=== PATIENT | male | born 1980 | race Caucasian/White ===

== ENCOUNTER 2021-10-22 16:47 | Outpatient (REF) | payer MEDICAID, SELFPAY ==
[2021-10-22 18:58] LABS: HCT 48.7 % (40.0-50.0); MCH 26.1 pg (27.0-33.0); MCHC 30.8 % (32.0-36.0); MCV 84.7 fL (80-95); MPV 11.4 fL (8.0-11.0); Platelet Count 216 10^3/uL (130-400); RBC 5.75 10^6/uL (4.36-5.78); RDW 14.2 % (11.8-14.1); RDW-SD 43.8 fL; WBC 6.29 10^3/uL (4.4-10.8)
[2021-10-22 20:17] LABS: ALT 26 U/L (16-63); AST 23 U/L (15-37); Albumin 4.2 g/dL (3.4-5.0); Alkaline Phosphatase 105 U/L (46-116); Anion Gap 9.7 mmol/L (3-11); BUN 13 mg/dL (7-18); Bilirubin, Total 0.4 mg/dL (0.2-1.0); CO2 27.3 mmol/L (21.0-32.0); CREATININE 0.8 mg/dL (0.70-1.30); Calcium 8.8 mg/dL (8.5-10.1); Chloride 104 mmol/L (98-107); Glucose 94 mg/dL (74-106); Potassium 4.3 mmol/L (3.5-5.1); Sodium 141 mmol/L (136-145); Total Protein 7.3 g/dL (6.4-8.2)
== END 2021-10-22 16:48 | disposition home or self-care (01) ==
LOC: NCHCN 16:47
PROVIDERS: Visit Provider Internal Medicine
DX: R73.03 Prediabetes (principal); J96.92 Respiratory failure, unspecified with hypercapnia; R09.02 Hypoxemia
CPT/HCPCS: 80053; 85027

== ENCOUNTER 2022-01-27 16:35 | Outpatient (REF) | payer MEDICAID, SELFPAY ==
[2022-01-27 21:16] LABS: HCT 49.9 % (40.0-50.0); HGB 15.3 g/dL (13.5-17.5); MCH 25.7 pg (27.0-33.0); MCHC 30.7 % (32.0-36.0); MCV 84 fL (80-95); Platelet Count 245 10^3/uL (130-400); RBC 5.95 10^6/uL (4.36-5.78); RDW 14.4 % (11.8-14.1); RDW-SD 43.3 fL; WBC 7.39 10^3/uL (4.4-10.8)
== END 2022-01-27 16:36 | disposition home or self-care (01) ==
LOC: NCHCN 16:35
PROVIDERS: Visit Provider Internal Medicine
DX: D75.1 Secondary polycythemia (principal); R60.0 Localized edema
CPT/HCPCS: 85027

== ENCOUNTER 2022-05-27 15:12 | Outpatient (REF) | payer MEDICAID, SELFPAY ==
[2022-05-27 18:49] LABS: HCT 50.1 % (40.0-50.0); HGB 16.1 g/dL (13.5-17.5); MCH 26.5 pg (27.0-33.0); MCHC 32.1 % (32.0-36.0); MCV 83 fL (80-95); MPV 10.9 fL (8.0-11.0); Platelet Count 215 10^3/uL (130-400); RBC 6.07 10^6/uL (4.36-5.78); RDW 14.1 % (11.8-14.1); RDW-SD 42.2 fL; WBC 6.68 10^3/uL (4.4-10.8)
[2022-05-29 13:59] LABS: Erythropoietin 8.2 mIU/mL (2.6 - 18.5)
== END 2022-05-27 15:13 | disposition home or self-care (01) ==
LOC: NCHCN 15:12
PROVIDERS: PCP Internal Medicine; Visit Provider Internal Medicine
DX: D75.1 Secondary polycythemia (principal); I48.0 Paroxysmal atrial fibrillation; J96.92 Respiratory failure, unspecified with hypercapnia
CPT/HCPCS: 82668; 85027

== ENCOUNTER 2022-09-28 02:49 | Outpatient (CLI) | payer MEDICAID, SELFPAY ==
[2022-09-28] MEDS: Albuterol HFA 18 GM 200 PUFF INH IH (14:56)
[2022-09-28] MEDS: Inhaler, Assist Device 1 EACH MC (14:56)
--- NOTE | 2022-10-01 14:32 | W.PFT ---
Date of service: 09/28/22 Time of Service: 12:56 Pulmonary Function Test Result Requesting Provider Duchene Indications: Restrictive lung disease Interpretation Spirometry: There is no airflow limitation. There is restrictive appearing spirometry. No bronchodilator response. The MIP and MEP are decreased. Lung Volumes: There is moderate restriction. Diffusion Capacity: Normal diffusion. Airway Pressure: Normal airways resistance. Impression Moderate restrictive lung disease with a normal diffusion and decrease muscle pressures. This could be consistent with restriction from respiratory muscle weakness. Clinical Correlation therefore is recommended.
== END 2022-09-28 02:50 | disposition home or self-care (01) ==
LOC: RT 02:49
PROVIDERS: PCP Internal Medicine; Visit Provider Student in an Organized Health Care Education/Training Program
DX: R94.2 Abnormal results of pulmonary function studies (principal); J84.9 Interstitial pulmonary disease, unspecified; R06.2 Wheezing; R06.09 Other forms of dyspnea
CPT/HCPCS: 94060; 94726; 94729

== ENCOUNTER 2023-02-24 14:14 | Outpatient (REF) | payer MEDICAID, SELFPAY ==
[2023-02-24 19:54] LABS: HCT 50.2 % (40.0-50.0); MCH 26.2 pg (27.0-33.0); MCHC 31.9 % (32.0-36.0); MCV 82 fL (80-95); MPV 10.9 fL (8.0-11.0); Platelet Count 209 10^3/uL (130-400); RBC 6.11 10^6/uL (4.36-5.78); RDW 14.4 % (11.8-14.1); RDW-SD 43.3 fL; WBC 5.17 10^3/uL (4.4-10.8)
[2023-02-24 20:10] LABS: ALT 22 U/L (16-63); AST 30 U/L (15-37); Albumin 4.2 g/dL (3.4-5.0); Alkaline Phosphatase 102 U/L (46-116); Anion Gap 9.8 mmol/L (3-11); BUN 9 mg/dL (7-18); Bilirubin, Total 0.7 mg/dL (0.2-1.0); CO2 29.2 mmol/L (21.0-32.0); CREATININE 1.1 mg/dL (0.70-1.30); Calcium 9.2 mg/dL (8.5-10.1); Calculated LDL 111 mg/dL (<100); Chloride 101 mmol/L (98-107); Cholesterol 186 mg/dL (<200); Estimated GFR 85.42 (mL/min/1.73m2); Glucose 101 mg/dL (74-106); HDL Cholesterol 54 mg/dL (40-60); Potassium 4.7 mmol/L (3.5-5.1); Sodium 140 mmol/L (136-145); Total Protein 8.1 g/dL (6.4-8.2); Triglyceride 106 mg/dL (<150)
[2023-02-24 20:44] LABS: Hemoglobin A1C 5.9 % (<5.7)
== END 2023-02-24 14:15 | disposition home or self-care (01) ==
LOC: NCHCN 14:14
PROVIDERS: PCP Internal Medicine; Visit Provider Internal Medicine
DX: D75.1 Secondary polycythemia (principal); E66.01 Morbid (severe) obesity due to excess calories; R60.0 Localized edema; R73.03 Prediabetes
CPT/HCPCS: 80053; 80061; 85027; 83036

== ENCOUNTER → 2023-12-19 13:10 | Outpatient (BNVA) | payer MEDICARE, MEDICAID, OTHER, SELFPAY | PROVIDERS: PCP Internal Medicine; Referring Provider Internal Medicine; Visit Provider Physician Assistant Surgical | DX: R53.81 Other malaise (principal); J98.6 Disorders of diaphragm; J98.4 Other disorders of lung; I27.20 Pulmonary hypertension, unspecified; J96.11 Chronic respiratory failure with hypoxia | CPT/HCPCS: 99215 ==

== ENCOUNTER 2024-01-13 14:00 | Outpatient (RCR) | payer MEDICARE, OTHER, MEDICAID, SELFPAY | END 2024-01-13 23:59 | disposition home or self-care (01) | LOC: PRC 14:00 | PROVIDERS: PCP Internal Medicine; Visit Provider Student in an Organized Health Care Education/Training Program | DX: J84.9 Interstitial pulmonary disease, unspecified (principal) | CPT/HCPCS: 94626 ==

== ENCOUNTER 2024-02-08 14:36 | Outpatient (RCR) | payer MEDICARE, OTHER, MEDICAID, SELFPAY ==
--- NOTE | 2024-02-13 16:04 | W.NUTRFU ---
Date of service: 02/13/24 Time of Service: 14:00 Nutrition Note NOTE: Assessment: Michael comes in after referral from [facility]. Would like to work on diet to support CV health and weight loss. He also has prediabetes as part of his PMH. Has been involved with cardiac rehab and reports good progress with staff up there. 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 He feels he has demonstrated willpower in the past, relating he went about 2 years without eating ice cream in the past. Currently Michael reports no set eating pattern. He does usually eat in the morning (4xtoast and 4xeggs given as example) but after that can be inconsistent. Does like pastas and breads - feels portion sizes are a problem here. Usual diet assessed as low in fiber and excessive in CHO intake in the form of starches (mostly refined). Lower food budget can be a barrier and he is looking for some more affordable choices.Mo Currently takes no supplements. No food allergies reported. on 12/19/23 anthropometrics were 133.356kg and 67 with a BMI of 45.9 Estimated energy needs: 2836kcals. Recommend ~2400kcals for steady weight loss. 240g CHO recommended with goal of 35g fiber consistently and <30g added sugar per day. recommended 120g protein for min protein goal (max of ~180g/day). Nutrition Dx: Inadequate fiber intake (NI-5.8.5) related to more refined grain choices and lower consistent intake of veggies and other high fiber choices, as evidenced by pt interview. Excessive CHO intake (NI-5.8.2) related to meals containing 4 or more servings of CHO, as evidenced pt diet recall/interview. Intervention: Reviewed the above recs with Michael and broke down carbs for him and reviewed some nutrition materials regarding carb and non-carb foods, serving sizes to count towards 15grams. Suggested no more than 3 carb servings at meals and 1 at snacks - reviewed importance of setting up a meal plan with goal to eat consistent meals and 1-2 planned snacks per day, targeting lower carb foods, healthy fats, and trying to get more plant protein and less animal protein. Also reviewed list of foods to aim for very regularly that are known to help with CV health: colorful veggies, beans/lentils, nuts/seeds, garlic, oats, whole soy, green tea/hibiscus tea. Michael requested some sample menus put together - I agreed to help with a day sample menu and mail out to him (no computer at home). Evaluation/Monitoring: We scheduled a follow up visit for march to check in on his progress and troubleshoot any barriers he is having. Time Spent in Nutritional Counseling and Treatment: 60 min
== END 2024-02-12 23:59 | disposition home or self-care (01) ==
LOC: PRC 14:36
PROVIDERS: PCP Internal Medicine; Visit Provider Student in an Organized Health Care Education/Training Program
DX: J84.9 Interstitial pulmonary disease, unspecified (principal)
CPT/HCPCS: 00123; 94626

== ENCOUNTER 2024-03-09 14:00 | Outpatient (RCR) | payer MEDICARE, OTHER, MEDICAID, SELFPAY ==
--- NOTE | 2024-03-07 09:41 | W.PFT ---
Date of service: 03/05/24 Time of Service: 14:30 Pulmonary Function Test Result Requesting Provider Debbie Montalvo Indications: Post pulmonary rehab. Interpretation Spirometry: Normal FEV1/FVC but moderate decrease in FEV1 and FVC. Impression Normal spirometry with no obstruction but decreased FEV1 and FVC suggesting restriction. Flow-volume curve suggests restriction. Clinical Correlation therefore is recommended.
== END 2024-03-14 23:59 | disposition home or self-care (01) ==
LOC: PRC 14:00
PROVIDERS: PCP Internal Medicine; Visit Provider Internal Medicine Critical Care Medicine
DX: J84.9 Interstitial pulmonary disease, unspecified (principal)
CPT/HCPCS: 00123; 94626

== ENCOUNTER → 2024-03-27 10:47 | Outpatient (BNVA) | payer MEDICARE, OTHER, MEDICAID, SELFPAY | PROVIDERS: PCP Internal Medicine; Referring Provider Internal Medicine; Visit Provider Physician Assistant Surgical | DX: J96.11 Chronic respiratory failure with hypoxia (principal); J98.4 Other disorders of lung; I27.20 Pulmonary hypertension, unspecified; E66.9 Obesity, unspecified; R53.81 Other malaise | CPT/HCPCS: 99214 ==

== ENCOUNTER 2024-04-02 02:49 | Outpatient (CLI) | payer MEDICARE, OTHER, MEDICAID, SELFPAY | END 2024-04-02 03:09 | LOC: DI 02:50 | PROVIDERS: PCP Internal Medicine; Visit Provider Physician Assistant Surgical | DX: I27.20 Pulmonary hypertension, unspecified (principal) | CPT/HCPCS: 93306 ==

== ENCOUNTER 2024-04-02 04:32 | Outpatient (CLI) | payer MEDICARE, OTHER, MEDICAID, SELFPAY ==
[2024-04-02] MEDS: Levalbuterol HFA 15 GM INH 4 PUFF IH (17:43)
[2024-04-02] MEDS: Inhaler, Assist Device 1 EACH MC (17:43)
--- NOTE | 2024-04-04 10:15 | W.PFT ---
Date of service: 04/02/24 Time of Service: 15:00 Pulmonary Function Test Result Requesting Provider Leonor Maloney Indications: Diaphragmatic dysfunction Impression Spirometry shows normal FEV1/FVC of 79%. Moderate decrease in FEV1 of 56% as well as FVC 56%. No significant reversibility postbronchodilator. Moderate decrease in lung volumes with mild air trapping. Normal diffusion. Flow volume curves suggest restriction. Impression Moderate restrictive ventilatory defect with normal diffusion. Clinical Correlation therefore is recommended.
--- NOTE | 2024-04-04 13:17 | W.6MWT ---
Date of service: 04/02/24 Time of Service: 17:00 6 Minute Walk Test Note: 6-minute walking test Baseline O2 saturations of 95% on room air. Patient walked 335 m and demonstrated no desaturations requiring supplemental O2.
== END 2024-04-02 04:33 | disposition home or self-care (01) ==
LOC: RT 04:32
PROVIDERS: PCP Internal Medicine; Visit Provider Physician Assistant Surgical
DX: J96.11 Chronic respiratory failure with hypoxia (principal); J98.6 Disorders of diaphragm
CPT/HCPCS: 00123; 94060; 94618; 94726; 94729; 93306

== ENCOUNTER 2024-09-21 16:33 | Outpatient (REF) | payer MEDICARE, OTHER, SELFPAY ==
[2024-09-21 19:24] LABS: ALT 25 U/L (16-63); AST 33 U/L (15-37); Albumin 4.3 g/dL (3.4-5.0); Alkaline Phosphatase 98 U/L (46-116); BUN 13 mg/dL (7-18); Bilirubin, Total 0.41 mg/dL (0.2-1.0); CREATININE 1.1 mg/dL (0.70-1.30); Calcium 9.6 mg/dL (8.5-10.1); Calculated LDL 134 mg/dL (<100); Chloride 103 mmol/L (98-107); Cholesterol 217 mg/dL (<200); Estimated GFR 84.37 (mL/min/1.73m2); Glucose 100 mg/dL (74-106); HDL Cholesterol 65 mg/dL (40-60); Potassium 4.4 mmol/L (3.5-5.1); Sodium 139 mmol/L (136-145); Total Protein 8.2 g/dL (6.4-8.2); Triglyceride 90 mg/dL (<150)
== END 2024-09-21 16:34 | disposition home or self-care (01) ==
LOC: NCHCN 16:33
PROVIDERS: PCP Internal Medicine; Visit Provider Internal Medicine
DX: E66.01 Morbid (severe) obesity due to excess calories (principal); R73.03 Prediabetes
CPT/HCPCS: 80053; 80061

== ENCOUNTER 2024-09-25 02:28 | Outpatient (CLI) | payer MEDICARE, OTHER, SELFPAY ==
--- NOTE | 2024-09-25 | DI.US_ITS ---
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 COMPARISON: No exams were available for comparison FINDINGS: Both testicles exhibit normal size and homogeneous echotexture with no intratesticular masses. There is vascular flow including arterial waveforms demonstrated within both testicles. Epididymal are un remarkable bilaterally. There are no significant hydroceles nor varicoceles. However, both testicles are displaced laterally by similar abundant soft tissue density throughout th e scrotal sac, possibly fat. Does not appear to be obvious hernia. IMPRESSION: 1. No evidence of testicular mass nor testicular torsion. 2. However, both testicles are displaced by abundant similar appearing soft tissue throughout the scr otum which is the cause of the very significantly enlarged scrotum in this patient. There is a possi pedro that this is fat tissue extending caudally from the abdomen versus possible intrinsic scrotal pat hology. Recommend CT scan and urology consultation. 3. No can't hydroceles nor varicoceles evident Patient claims that this has been present for between 5-10 years but more painful recently. DATA REPOSITORY:
== END 2024-09-25 02:48 ==
LOC: DI 02:28
PROVIDERS: PCP Internal Medicine; Visit Provider Internal Medicine
DX: N43.3 Hydrocele, unspecified (principal)
CPT/HCPCS: 76870

== ENCOUNTER 2024-10-05 00:21 | Outpatient (CLI) | payer MEDICARE, OTHER, SELFPAY ==
[2024-10-05] MEDS: Barium Sulfate 2% W/V-Berry Smoothie 450 ML BTL PO (07:51)
[2024-10-05] MEDS: Barium Sulfate 2% W/V-Creamy Vanilla Smoothie 450 ML BTL PO (07:54)
--- NOTE | 2024-10-05 10:17 | DI.CT_ITS ---
Exam(s) CT PELVIC W EXAM: CT PELVIC W CLINICAL HISTORY: SCROTAL HERNIA K40.90 FU US 09/25/24 TECHNIQUE: Imaging Protocol: Axial computed tomography images with coronal and sagittal reformatted images were created and reviewed CONTRAST MATERIAL: Intravenous: Omnipaque 350 Contrast volume:100 mL Oral: Yes COMPARISON: US US SCROTUM from 09/25/2024 FINDINGS: PELVIS: Abdominal Aorta: Abdominal portion non-dilated. Bowel: There is a large left inguinal hernia extending into the scrotal sac. It contains a long segm ent of the sigmoid colon. There is no evidence of incarceration or obstruction. There is diverticul osis of the colon without evidence of acute diverticulitis. There is no bowel wall thickening. Appe ndix is unremarkable. Peritoneal Cavity: No ascites, collection or mesenteric inflammatory response. Soft Tissues: There is a small fat containing right inguinal hernia. Bladder: Symmetric distention, no gross wall thickening. Reproductive Organs: Unremarkable as visualized. Lymph Nodes: Within normal limits. Bones: Within normal limits. IMPRESSION: 1. Large left inguinal hernia containing a long segment of the sigmoid colon. There is no evidence o f a car serration or obstruction of the bowel. The hernia extends into the scrotal sac. 2. Colonic diverticulosis without evidence of acute diverticulitis. RADIATION DOSE DELIVERED: 801.75mGy.cm Total DLP 801.75mGy.cm Total DLP DATA REPOSITORY: All CT scans at this facility are submitted to the National Radiology Data Registry (NRDR) Dose Index Registry (DIR) with the [employer] ([employer]). RADIATION OPTIMIZATION: All CT scans at this facility use at least one of these dose optimization te chniques: automated exposure control; mA and/or kV adjustment per patient size (includes targeted exa ms where dose is matched to clinical indication); or iterative reconstruction.
[2024-10-05] MEDS: Omnipaque 350 MG/ML 100 ML BTL IJ (10:21)
[2024-10-05] MEDS: Normal Saline - Diluent 50 ML VIAL IJ (10:22)
== END 2024-10-05 00:41 ==
LOC: DI 00:22
PROVIDERS: PCP Internal Medicine; Visit Provider Internal Medicine
DX: K40.90 Unilateral inguinal hernia, without obstruction or gangrene, not specified as recurrent (principal); K57.30 Diverticulosis of large intestine without perforation or abscess without bleeding
CPT/HCPCS: 72193; J3490

== ENCOUNTER → 2024-11-21 13:26 | Outpatient (BNVA) | payer MEDICARE, OTHER, SELFPAY | PROVIDERS: PCP Internal Medicine; Referring Provider Internal Medicine; Visit Provider Physician Assistant Surgical | DX: J96.11 Chronic respiratory failure with hypoxia (principal); J98.6 Disorders of diaphragm; J98.4 Other disorders of lung; E66.9 Obesity, unspecified; M62.81 Muscle weakness (generalized); R53.81 Other malaise | CPT/HCPCS: 36415; 99214 ==

== ENCOUNTER 2024-11-21 18:53 | Outpatient (REF) | payer MEDICARE, OTHER, SELFPAY ==
[2024-11-22 18:00] LABS: Rheumatoid Factor <8.6 IU/mL (<12.0)
[2024-11-23 09:40] LABS: Cyclic Citrullinated Peptide <2.5 U/mL (<5.0)
[2024-11-23 15:25] LABS: ANA Interpretation Negative (Negative)
== END 2024-11-21 18:54 | disposition home or self-care (01) ==
LOC: LBN 18:53
PROVIDERS: PCP Internal Medicine; Visit Provider Physician Assistant Surgical
DX: J96.11 Chronic respiratory failure with hypoxia (principal); J98.6 Disorders of diaphragm; J98.4 Other disorders of lung; M62.81 Muscle weakness (generalized)
CPT/HCPCS: 86200; 84443; 86038; 86431

== ENCOUNTER → 2025-05-22 13:23 | Outpatient (BNVA) | payer MEDICARE, OTHER, SELFPAY | PROVIDERS: PCP Internal Medicine; Referring Provider Internal Medicine; Visit Provider Physician Assistant Surgical | DX: J96.11 Chronic respiratory failure with hypoxia (principal); E66.9 Obesity, unspecified; J98.4 Other disorders of lung; J98.6 Disorders of diaphragm; R53.81 Other malaise; Z87.891 Personal history of nicotine dependence | CPT/HCPCS: 99214 ==

== ENCOUNTER 2025-08-02 12:54 | Outpatient (REF) | payer MEDICARE, OTHER, SELFPAY ==
[2025-08-02 19:11] LABS: HCT 47.0 % (40.0-50.0); HGB 14.9 g/dL (13.5-17.5); MCH 26.7 pg (27.0-33.0); MCHC 31.7 % (32.0-36.0); MCV 84 fL (80-95); MPV 10.7 fL (8.0-11.0); Platelet Count 217 10^3/uL (130-400); RBC 5.59 10^6/uL (4.36-5.78); RDW 14.0 % (11.8-14.1); RDW-SD 43.0 fL; WBC 5.39 10^3/uL (4.4-10.8)
[2025-08-02 19:39] LABS: TSH (W/Ref FT4) 1.25 uIU/mL (0.55-4.78)
[2025-08-02 19:50] LABS: ALT 24 U/L (10-49); AST 31 U/L (<34); Albumin 4.5 g/dL (3.2-5.0); Alkaline Phosphatase 87 U/L (46-116); Anion Gap 8.9 mmol/L (3-11); BUN 18 mg/dL (9-23); Bilirubin, Total 0.5 mg/dL (0.2-1.2); CO2 26.1 mmol/L (20.0-31.0); Calcium 9.1 mg/dL (8.3-10.6); Chloride 104 mmol/L (98-107); Cholesterol 170 mg/dL (<200); Glucose 93 mg/dL (74-106); HDL Cholesterol 56 mg/dL (>or=40); Potassium 4.4 mmol/L (3.5-5.1); Sodium 139 mmol/L (136-145); Total Protein 7.4 g/dL (5.7-8.2)
== END 2025-08-02 12:55 | disposition home or self-care (01) ==
LOC: NCHCN 12:54
PROVIDERS: PCP Internal Medicine; Visit Provider Physician Assistant
DX: D75.1 Secondary polycythemia (principal); I48.0 Paroxysmal atrial fibrillation
CPT/HCPCS: 80053; 80061; 85027; 84443

== ENCOUNTER → 2025-08-12 12:14 | Outpatient (CLI) | payer MEDICARE, OTHER, SELFPAY ==
--- NOTE | 2025-08-12 12:30 | DI.RAD_ITS ---
Exam(s) XR KNEE LT 4V AP,LAT,AMELIA,PAT EXAM: XR KNEE LT 4V AP,LAT,AMELIA,PAT CLINICAL HISTORY: PAIN LT KNEE M25.562. TECHNIQUE: 2D digital imaging was performed. COMPARISON: No exams were available for comparison FINDINGS: Four views No evidence of acute fracturehh. Small amount of increased joint fluid noted. There is no significant degenerative narrowing the knee joint compartment spaces. Bone density normal. No osseous lesions. IMPRESSION: No significant osseous findings in the knee. Minimal amount of increased joint fluid noted. DATA REPOSITORY: RADIATION DOSE DELIVERED:
== END ==
LOC: DI 12:14
PROVIDERS: PCP Internal Medicine; Visit Provider Physician Assistant
DX: M25.562 Pain in left knee (principal)
CPT/HCPCS: 73564